=== PATIENT | male | born 1975 | race Caucasian/White ===

== ENCOUNTER 2020-07-18 13:13 | Emergency (ER) | payer MEDICAID, OTHER ==
[~2020-07-18] VITALS: Ht 182.9 cm; Wt 98.4 kg
[2020-07-18 13:19] VITALS: BP_SYST 170
--- NOTE | 2020-07-18 13:22 | NUR ---
Patient to ER bed 7 to gown for evaluation. Side rails up. Report given to HIREN BULL.
[2020-07-18] MEDS ORDERED: NOR10 PO (13:33)
[2020-07-18] MEDS ORDERED: LISI30TA36 PO (13:33)
--- NOTE | 2020-07-18 13:33 | NUR ---
Medication reconciliation completed with information provided by PATIENT. Any prior medication reconciliation on file was reviewed and corrected.
--- NOTE | 2020-07-18 13:35 | NUR ---
RECEIVED, JONATHON TO ASSUME CARE. CALM, ALERT, RESP UNLABORED, SKIN WARM AND DRY. COMMUNICATES CLEARLY IN FULL COMPLETE SENTNECES. STEADY GAIT. C/O LIGHTHEADEDNESS UPON WAKING, UPON ARRIVAL, DENIES DIZZINESS/LIGHTHEADEDNESS
--- NOTE | 2020-07-18 13:42 | NUR ---
DR MELÉNDEZ IN TO ASSESS. PT CALM, ALERT, RESP UNLABORED, SKIN WARM AND DRY.
[2020-07-18] MEDS ORDERED: hydrALAZINE HCL 25 MG TABLET PO ONE (13:45)
[2020-07-18] MEDS ORDERED: MECLIZINE HCL 25 MG TABLET (ANITVERT) PO ONE (14:00)
[2020-07-18 14:38] VITALS: BP_SYST 160
--- NOTE | 2020-07-18 14:39 | NUR ---
Patient given written and verbal discharge instructions and verbalizes understanding. ER MD discussed with patient the results and treatment provided. Patient in stable condition. ID arm band removed. IV catheter removed intact and dressing applied, no active bleeding. Rx of HTN MED given. Patient educated on pain management and to follow up with PMD. Pain Scale 0/10 Opportunity for questions provided and answered. Medication side effect fact sheet provided.
== END 2020-07-18 14:38 | disposition home or self-care (01) ==
LOC: SED 13:13
DX: I10 Essential (primary) hypertension (principal); R00.1 Bradycardia, unspecified; R42 Dizziness and giddiness; Z88.0 Allergy status to penicillin
CPT/HCPCS: 93005; 99283; J8597

== ENCOUNTER 2021-10-07 11:50 | Emergency (ER) | payer OTHER ==
[~2021-10-07] VITALS: Ht 182.9 cm; Wt 102.1 kg
[~2021-10-07 11:50] MED LIST: LISI30TA36 PO; NOR10 PO
[2021-10-07 11:55] VITALS: BP_SYST 186
--- NOTE | 2021-10-07 11:55 | NUR ---
Pt to bed 2 for evaluation. Pt gowned and attached to playground monitor.
--- NOTE | 2021-10-07 12:00 | NUR ---
Pt AAO and ambulatory reporting dizziness today and high blood pressure. Pt ran out of his Losartan because his pharmacy was out of stock. Pt was to see doctor but his symptoms scared him so he came in to be checked. Pt only has history of hypertension.
--- NOTE | 2021-10-07 12:10 | NUR ---
Dr. Garcia at bedside to assess.
--- NOTE | 2021-10-07 12:27 | NUR ---
RECEIVED PT, ON HYDRALAZINE AND LOSARTAN FOR COUPKE OF YEARS. HAS BEEN OUT OF HIS LOSARTAN FOR 3 DAYS. DENIES ANY CP OR SOB AT THIS TIME. RESP EVEN AND UNLABORED, ON RA @97%.
[2021-10-07 12:38] LABS: BASOPHILS % (AUTO) 0.5 % (0.0-2.0); EOSINOPHILS % (AUTO) 0.6 % (0.0-4.0); HEMOGLOBIN 13.8 g/dL (14.0-18.0); LYMPHOCYTES # (AUTO) 1.4 K/uL (1.0-5.5); LYMPHOCYTES % (AUTO) 19.1 % (20.5-51.5); MEAN CORPUSCULAR HEMOGLOBIN 34 pg (27-31); MEAN CORPUSCULAR HGB CONC 35 % (32-36); MEAN CORPUSCULAR VOLUME 98 fL (79.0-98.0); MONOCYTES # (AUTO) 0.5 K/uL (0.0-1.0); MONOCYTES % (AUTO) 7.5 % (1.7-9.3); NEUTROPHILS # (AUTO) 5.2 K/uL (1.8-7.7); NEUTROPHILS % (AUTO) 72.3 % (40.0-70.0); PLATELET COUNT (AUTO) 192 K/uL (130-430); RED BLOOD CELL COUNT(AUTO) 4.07 MIL/uL (4.2-6.2); WHITE BLOOD COUNT (AUTO) 7.2 K/uL (4.8-10.8)
[2021-10-07 13:10] LABS: CALCIUM 9.2 mg/dL (8.4-11.0); CREATININE 1.01 mg/dL (0.55-1.30); POTASSIUM 4.2 mmol/L (3.5-5.1)
[2021-10-07 13:16] LABS: ALBUMIN 4.1 g/dL (3.4-4.8); TOTAL BILIRUBIN 0.6 mg/dL (0.0-1.0)
--- NOTE | 2021-10-07 13:39 | NUR ---
NO ACUTE CHNAGES IN CONDITON, PT USING PHONE AND TALKING WITH YAMILETH. DENIES CP.
[2021-10-07] MEDS ORDERED: LOSA50TA3 PO (14:05)
[2021-10-07 14:42] VITALS: BP_SYST 169
--- NOTE | 2021-10-07 14:43 | NUR ---
Patient given written and verbal discharge instructions and verbalizes understanding. ER MD discussed with patient the results and treatment provided. Patient in stable condition. ID arm band removed. IV catheter removed intact and dressing applied, no active bleeding. Rx of LOSARTAN given. Patient educated on pain management and to follow up with PMD. Pain Scale . Opportunity for questions provided and answered. Medication side effect fact sheet provided.
--- NOTE | 2021-10-07 14:47 | NUR ---
Patient given written and verbal discharge instructions and verbalizes understanding. ER MD discussed with patient the results and treatment provided. Patient in stable condition. ID arm band removed. Patient educated on pain management and to follow up with PMD. Pain Scale [0]. Opportunity for questions provided and answered. Medication side effect fact sheet provided.
== END 2021-10-07 14:47 | disposition home or self-care (01) ==
LOC: SED 11:50
DX: R07.89 Other chest pain (principal); I10 Essential (primary) hypertension; F12.90 Cannabis use, unspecified, uncomplicated; Z88.0 Allergy status to penicillin; Z79.899 Other long term (current) drug therapy
CPT/HCPCS: 36415; 71045; 80053; 84484; 85025; 93005; 99285